=== PATIENT | male | born 1990 | race African-American/Black ===

== ENCOUNTER 2023-12-07 04:26 | Emergency (ER) | payer MEDICAID ==
[~2023-12-07] VITALS: Ht 180.3 cm; Wt 82.0 kg
[2023-12-07 04:39] VITALS: O2SAT 100
[2023-12-07] MEDS: KETOROLAC 15MG/ML VIAL IM ONE (06:37)
[2023-12-07 07:03] LABS: BASOPHILS % 0.5 % (0.0-2.0); EOSINOPHILS % 3.2 % (0.0-5.0); HEMATOCRIT. 41.2 % (42.0-52.0); HEMOGLOBIN. 13.8 g/dL (14.0-18.0); LYMPHOCYTES % 15.4 % (20.0-50.0); MEAN CORPUSCULAR HEMOGLOBIN 28.4 pg (28.0-32.0); MEAN CORPUSCULAR HGB CONC 33.6 g/dL (31.0-37.0); MEAN CORPUSCULAR VOLUME 84.5 fL (80.0-94.0); MEAN PLATELET VOLUME 7.1 fl (7.4-10.4); MONOCYTES % 10.5 % (2.0-8.0); NEUTROPHILS % 70.4 % (40.0-76.0); PLATELET 266 x1000/uL (130-400); RED BLOOD CELL COUNT 4.88 mill/uL (4.7-6.1); RED CELL DISTRIBUTION WIDTH 13.7 % (11.6-14.6); WHITE BLOOD COUNT 9.4 x1000/uL (4.5-11.0)
[2023-12-07 07:05] LABS: CLARITY URINE CLEAR (CLEAR); COLOR URINE YELLOW (YELLOW); GLUCOSE URINE NEGATIVE (NEGATIVE); KETONES URINE TRACE (NEGATIVE); LEUKOCYTE ESTERASE URINE TRACE (NEGATIVE); NITRITE URINE NEGATIVE (NEGATIVE); OCCULT BLOOD URINE NEGATIVE (NEGATIVE); PH URINE 5.5 (4.5-8.0); PROTEIN URINE TRACE (NEGATIVE); SPECIFIC GRAVITY URINE 1.031 (1.005-1.030)
[2023-12-07 07:09] LABS: CHLORIDE 107 mEq/L (98-107); POTASSIUM 4.4 mEq/L (3.5-5.1); SODIUM 138 mEq/L (136-145)
[2023-12-07 07:10] LABS: CALCIUM 8.9 mg/dL (8.7-10.4); CARBON DIOXIDE 28 mEq/L (21-32)
[2023-12-07 07:15] LABS: CREATININE 0.9 mg/dL (0.6-1.3); GLUCOSE 104 mg/dL (70-105); UREA NITROGEN BLOOD 7 mg/dL (9-23)
[2023-12-07 07:45] LABS: MUCUS URINE TRACE /lpf (NONE/TRACE)
[2023-12-07 07:46] LABS: SQUAMOUS EPITHELIAL CELL URINE NONE SEEN /lpf (RARE/1+)
[2023-12-07 07:47] LABS: BACTERIA URINE TRACE
[2023-12-07 07:48] LABS: RBC URINE NONE SEEN /hpf (0-2)
[2023-12-07] MEDS: ASPIRIN 325MG EC TABLET PO ONE (08:25)
[2023-12-07 08:53] LABS: INR 0.9; PARTIAL THROMBOPLASTIN TIME 28.1 sec (23.4-31.0); PROTHROMBIN TIME 10.4 sec (9.6-11.0)
[2023-12-07] MEDS: ENOXAPARIN 80MG/0.8ML SYR SUBCUT ONE (09:04)
[2023-12-07 09:41] VITALS: BP 133/88; PULSE 72; RESP 18; TEMP 37.16964; O2SAT 99
== END 2023-12-07 09:42 | disposition left against medical advice (07) ==
LOC: ER 04:26
DX: I82.401 Acute embolism and thrombosis of unspecified deep veins of right lower extremity (principal)
CPT/HCPCS: 99285; 93971; 80048; 81003; 85025; 85379; 85610; 85730; 36415; 73552; 73562; 96372; J1650; J1885